=== PATIENT | female | born 1940 | race Caucasian/White ===

== ENCOUNTER 2022-11-30 05:25 | Day surgery (SDC) | payer OTHER ==
[2022-11-26 16:34] LABS: BASOPHILS % (AUTO) 0.4 % (0-1); EOSINOPHILS % (AUTO) 0.4 % (0-6); LYMPHOCYTES # (AUTO) 1.9 X10'3 (1.1-4.8); LYMPHOCYTES % (AUTO) 29.5 % (21-51); MEAN CORPUSCULAR HEMOGLOBIN 32.3 PG (27.0-31.0); MEAN CORPUSCULAR HGB CONC 33.3 g/dL (33.0-36.5); MEAN CORPUSCULAR VOLUME 96.9 FL (78-98); MEAN PLATELET VOLUME 9.6 FL (7.4-10.4); MONOCYTES # (AUTO) 0.5 X10'3 (0-0.9); MONOCYTES % (AUTO) 7.1 % (2-12); NEUTROPHILS % (AUTO) 62.6 % (42-75); PRE OP HEMATOCRIT 39.8 % (35.0-45.0); PRE OP HEMOGLOBIN 13.2 g/dL (12.0-16.0); PRE OP PLATELET COUNT 170 X10'3 (140-440)
[2022-11-26 16:40] LABS: ALBUMIN 3.8 G/DL (3.4-5.0); ALBUMIN/GLOBULIN RATIO 1.1 (1.1-1.5); ALKALINE PHOSPHATASE 58 IU/L (46-116); BLOOD UREA NITROGEN 13 MG/DL (7-18); BUN/CREATININE RATIO 17.3 (10.0-20.0); CALCIUM 9.1 MG/DL (8.5-10.1); CHLORIDE 102 MMOL/L (99-107); CREATININE 0.75 MG/DL (0.40-0.90); PRE OP ALT 15 U/L (30-65); PRE OP ANION GAP 7 (8-16); PRE OP AST 17 U/L (10-37); PRE OP BILIRUB, TOTAL 0.3 MG/DL (0.0-1.0); PRE OP GLUCOSE 90 MG/DL (70-104); PRE OP SODIUM 138 MMOL/L (135-145); TOTAL CARBON DIOXIDE 28.6 MMOL/L (24-32); TOTAL PROTEIN 7.2 G/DL (6.4-8.2); eGFR 74 ML/MIN
[~2022-11-30] VITALS: Ht 158.8 cm; Wt 78.9 kg
[~2022-11-30 05:25] MED LIST: ACET-2119 PO; LEVO112T52 PO; ringers solution, lacted 1,000 ML IV SCH
[2022-11-30] MEDS ORDERED: famotidine 20mg tablet PO ONE (05:30)
[2022-11-30] MEDS ORDERED: cefazolin 2gm/D5W 100mL 100 ML IV ONE (05:30)
[2022-11-30 05:59] VITALS: BP 144/70
[2022-11-30] MEDS ORDERED: BUPIVAcaine/PF 2.5 mg/ml (0.25%) 30ml vial ONE (06:35)
[2022-11-30] MEDS ORDERED: fentaNYL/PF 50MCG/1 ML 2ML syringe ONE (09:15)
[2022-11-30] MEDS ORDERED: midazolam 1 mg/ML 2ml injection ONE (09:17)
[2022-11-30] MEDS ORDERED: proCHLORperazine 10 MG/2 ml inj IV PRN (09:55)
[2022-11-30] MEDS ORDERED: ringers solution, lacted 1,000 ML IV SCH (09:55)
[2022-11-30] MEDS ORDERED: ondansetron/PF 4mg/2ml inj IV PRN (09:55)
[2022-11-30] MEDS ORDERED: morphine 4 MG/ML inj SYRINge IV PRN (09:55)
[2022-11-30] MEDS ORDERED: meperidine/PF 25mg/ml syringe IV PRN ×3 (09:55)
[2022-11-30] MEDS ORDERED: morphine 2 MG/ML inj. syringe IV PRN (09:55)
[2022-11-30] MEDS ORDERED: ondansetron/PF 4mg/2ml inj ONE (09:56)
[2022-11-30] MEDS ORDERED: dexamethasone sod phosphate 4mg/ml inj. ONE (09:56)
[2022-11-30] MEDS ORDERED: propofol inj 20 ML IV ONE (09:58)
[2022-11-30 10:13] VITALS: BP 153/73
[2022-11-30 10:20] VITALS: BP 156/72
--- NOTE | 2022-11-30 10:20 | NUR ---
Received from OR via [facility], accompanied by Anesthesiologist DR BROWN and report given by Anesthesiologist. PT IS AWAKE AND ANSWERING QUESTIONS APPROPRIATELY AND ABLE TO FOLLOW COMMANDS. PT PLACED ON BEDSIDE MONITOR, VSS. PT HAS DRSG TO LEFT BREAST THAT IS CDI, LIGHT BLUE COMPRESSION GARMENT IN PLACE. PT HAS 20G PIV TO RT WRIST WITH LR INFUSING ORDERED. IA DENIES PAIN AT THIS TIME. WILL CONTINUE TO ASSESS.
[2022-11-30] MEDS ORDERED: sevoflurane 250ml liquid IH ONE (10:25)
[2022-11-30] MEDS ORDERED: acetaminophen 1000 MG/100ml vial IV ONE (10:25)
[2022-11-30 10:30] VITALS: BP 161/63
[2022-11-30 10:40] VITALS: BP 170/65
--- NOTE | 2022-11-30 11:15 | NUR ---
ALL DISCHARGE CRITERIA HAS BEEN MET. VSS, PAIN AT A TOLERABLE LEVEL AND ABLE TO SAFELY AMBULATE AND TRANSFER SELF. IV TAKEN OUT WITHOUT ANY COMPLICATIONS. ALL DISCHARGE INSTRUCTIONS COVERED WITH PATIENT AND ALL QUESTIONS ANSWERED. PATIENT TAKEN OUT VIA WHEELCHAIR TO PERSONAL VEHICLE WHERE DROVE PATIENT HOME.
== END 2022-11-30 11:03 | disposition home or self-care (01) ==
LOC: PAS 05:25
PROVIDERS: ATTEND Surgery
DX: N63.20 Unspecified lump in the left breast, unspecified quadrant (principal); N64.1 Fat necrosis of breast; I10 Essential (primary) hypertension; L82.1 Other seborrheic keratosis; Z79.899 Other long term (current) drug therapy; Z90.710 Acquired absence of both cervix and uterus; Z98.890 Other specified postprocedural states; Z90.49 Acquired absence of other specified parts of digestive tract; Z87.442 Personal history of urinary calculi
CPT/HCPCS: 19120; 36415; 76998; 80053; 82948; 85025; 93005; J0131; J0690; J1100; J2250; J2405; J2704; J3010; J3490; J7030; J7120; Z7506; Z7512; A4215; A4618; A6213; A7000